=== PATIENT | female | born 1980 | race Caucasian/White ===

== ENCOUNTER 2023-10-29 14:27 | Emergency (ER) | payer OTHER, SELFPAY ==
[2023-10-29 14:29] VITALS: BP 171/105; PULSE 101; RESP 20; TEMP 36.9; O2SAT 97; BMI 33.9
[2023-10-29] MEDS: Oxymetazoline 0.05% 1 SPRAY SPRAY.BTL NASAL (15:28)
--- NOTE | 2023-10-29 15:34 | EX.ED.DYSGE1 ---
HPI History of Present Illness Chief Complaint: Nosebleed Informant: patient Narrative Narrative: Sudden nosebleed on the right side while blowing her nose at work. She works in a doctor's office. They are trying to control this. States silver nitrate sticks x 2 however kept oozing. She was sent to the ED for evaluation. Not take any blood thinners. She had sinus surgery 2018 on the right side by Dr. Austin through [facility]. Blood dripping in the back of her throat. Prior similar symptoms: No PFSH PFSH Home Medications Cetirizine Hcl [Zyrtec] 10 mg PO DAILY 09/22/13 [History Last Taken Unknown] Ranitidine [Zantac] 150 mg PO DAILY 09/22/13 [History Last Taken Unknown] amoxicillin 875 mg-potassium clavulanate 125 mg tablet 1 tab PO Q12H 09/22/13 [History Last Taken Unknown] ketorolac 10 mg tablet 10 mg PO Q6H ##20 09/22/13 [Rx Last Taken Unknown] oxycodone-acetaminophen 5 mg-325 mg tablet 1 - 2 tab PO Q4H PRN PRN Pain #20 tabs 09/22/13 [Rx Last Taken Unknown] cephalexin 500 mg capsule 500 mg PO BID #10 caps 10/29/23 [Rx Last Taken Unknown] Allergy/AdvReac Type Severity Reaction Status Date / Time Influenza Virus Vaccines Allergy Anaphylaxis Verified 10/29/23 14:28 nitrofurantoin Allergy Upset Verified 09/22/13 13:18 [From Macrobid] Stomach nitrofurantoin Allergy Upset Verified 09/22/13 13:18 macrocrystalline Stomach [From Macrobid] Social History Smoking Status: Never smoker ROS ROS ED Constitutional Constitutional ED: Denies chills, fever(s) or sweats Eyes Eyes: Denies change in vision ENT ENT ED: Reports other Details: Right-sided epistaxis ; Denies dysphagia or sore throat Cardiovascular Cardiovascular: Denies chest pain, leg edema, palpitations or racing heartbeat Respiratory/Chest Respiratory/Chest: Denies cough, dyspnea or dyspnea on exertion Gastrointestinal Gastrointestinal: Denies abdominal pain, diarrhea, nausea or vomiting Genitourinary Genitourinary ED: Denies dysuria, hematuria or urinary frequency Musculoskeletal Musculoskeletal: Denies back pain, extremity pain or neck pain Integumentary Denies rash or wounds Neurologic Neurologic: Denies headache(s), paresthesias or weakness EXAM Physical Exam Const Vital Signs: 10/29/23 14:29 Temperature 98.5 F Temperature Source Temporal Pulse Rate 101 H Respiratory Rate 20 H Blood Pressure 171/105 H Blood Pressure Mean 127 Pulse Ox 97 Oxygen Delivery Method Room Air Positive well nourished and well developed Constitutional Narrative: During evaluation with nose pinchers, there was blood oozing on the right side, due to blood unable to visualize any areas due to blood. General Appearance ED: well developed HEENT Reports moist mucous membranes HEENT Narrative: There is blood in the back of the throat with oozing. normocephalic and atraumatic Eyes PERRL, EOMs intact bilaterally and conjunctivae normal General Eye ED: Yes normal appearance of both eyes Neck no lymphadenopathy and supple General: Negative for tenderness Chest Wall Chest: Negative for tenderness Resp normal respiratory effort and normal air movement Effort and Inspection: symmetric chest movement; Negative for respiratory distress Cardio regular rate, regular rhythm and no murmurs Peripheral Pulses: pulses 2+ throughout GI normal to inspection, nondistended, normoactive bowel sounds and non-tender Palpation: Negative for guarding or rebound tenderness present Back/Spine no CVA tenderness and no thoracic nor lumbar tenderness Extremity normal to inspection General Extremety ED: Negative for edema or tenderness General Extremity: Negative for edema Neuro oriented x3 and no sensory deficits noted Sensorium / Orientation: awake and alert Skin no rashes or lesions noted and no wounds MDM MDM MDM Narrative Medical decision making narrative: Interventions / MDM: Differential diagnosis: Diagnosis considered but do not suspect: N/A My EKG interpretation: N/A Imaging independently reviewed and interpreted by myself: N/A External documents reviewed: N/A Test considered but not ordered:N/A ED course: Initial attempt with Afrin on cotton on the right side, nose clips were placed, however blood was, in the back throat she was gagging. This was removed. Immediate 7.5 cm Rhino Rocket was placed to the right side gentle pressure. This was placed at 1530 with more controlled bleeding at this time. She will be monitored. 1550: Packing intact bleeding controlled at this time. Will continue to monitor. 1630: Patient ambulated states he was noted a little bit of blood in the back throat. I reevaluate there is no active bleeding there is dried blood in the pharynx. She is stabbing in the front stating minute amount of blood there for little extra air was pushing the balloon and she will be monitored. Reevaluation symptoms are controlled. Discussed leaving nasal packing for 3 days. Return precautions. She has ENT specialist through [facility]. She is also given local ENT if she can get in in 3 days. States delayed she will start Keflex. All questions were answered. Re-evaluation: stable Disposition discussed with patient/family/significant other: Patient Case discussed with consulting clinician: N/A This note was generated with [employer] dictation software. It may contain incorrect words, spelling, and punctuation that were not noted in checking the note before signing. Discharge Plan Triage Chief Complaint: Nosebleed ED Provider: Hermes Pickett Dx/Rx/DC Orders Clinical Impression: Right-sided epistaxis Instructions: ED Epistaxis (Adult) Prescriptions: New cephalexin 500 mg capsule 500 mg PO BID Qty: 10 0RF No Action amoxicillin-pot clavulanate 875 MG tablet 1 tab PO Q12H Cetirizine Hcl [Zyrtec] 10 MG tablet 10 mg PO DAILY Ranitidine [Zantac] 150 MG tablet 150 mg PO DAILY ketorolac 10 MG tablet 10 mg PO Q6H Qty: 20 0RF oxycodone-acetaminophen 1 TABLET tablet 1 - 2 tab PO Q4H PRN PRN (Reason: Pain) Qty: 20 0RF Primary Care Provider: Moises Zamora Referrals: Ulises Banda MD [Med Staff - Active Staff] - 3-5 Days Mary Owens DO [Non-Staff] - Activity Restrictions/Additional Instructions: 7.5 cm right Rhino Rocket placed. Follow-up with your ENT doctor or Dr. Crow in 3 days. If the close past 3 days will need to start Keflex. Return if rebleeding occurs not controlled. Disposition Disposition: Home, Self Care Discharge Date/Time: 10/29/23 17:26
== END 2023-10-29 17:26 | disposition home or self-care (01) ==
PROVIDERS: Emergency Provider Emergency Medicine; PCP Student in an Organized Health Care Education/Training Program; Visit Provider Emergency Medicine
DX: R04.0 Epistaxis (principal)
CPT/HCPCS: 30901; 99282